=== PATIENT | male | born 1960 | race African-American/Black ===

== ENCOUNTER 2018-01-21 10:11 | Emergency (ER) | payer OTHER ==
[~2018-01-21] VITALS: Ht 167.6 cm; Wt 81.6 kg
[2018-01-21] MEDS ORDERED: LABETALOL HCL 5 MG/ML 20ML VIAL IV STA (10:32)
[2018-01-21] MEDS ORDERED: CLONIDINE HCL 0.1 MG TAB PO ONE (10:45)
[2018-01-21 10:55] VITALS: BP 141/87
== END 2018-01-21 11:02 | disposition home or self-care (01) ==
LOC: FSED 10:11
DX: I10 Essential (primary) hypertension (principal); Z87.891 Personal history of nicotine dependence
CPT/HCPCS: 80053; 85025; 93005; 99283; J3490